=== PATIENT | female | born 1970 | race Caucasian/White ===

== ENCOUNTER 2023-08-28 13:53 | Outpatient (AMB) | payer BC, SELFPAY ==
--- NOTE | 2023-08-28 13:49 | MHC.PC.OV ---
Vital Signs 08/28/23 14:05 Height 5 ft 4.65 in Weight 125 lb 8 oz BMI 21.1 BP 128/76 Blood Pressure Location Lt brachial Position Sitting Respiration 14 Pulse 81 Pulse Source Pulse Oximeter Temp 98 F Temp Source Oral Pulse Oximetry (%) 98 Oxygen Delivery Method Room Air Intake Visit Reasons: EST CARE Intake Note: New patient visit Radio Sportscaster Required: No Allergies trazodone Allergy (Unknown, Verified 08/28/23 13:54) Headache Medication List - Last Reconciled 08/28/23 by Sandra Joyce PA-C lorazepam 1 mg PO DAILY PRN naratriptan take 1 tab at onset of headache; if no relief may repeat 1 tab after at least 4 hrs; max = 2 tabs/24 hrs PO Dental Screening Dental Screen Date: 08/28/23 Did you have a dental visit in the last 12 months?: Yes Did you have a dental problem in the last 6 months where you did not have access to dental care?: No Was dental information given to patient?: Patient has dentist HPI EST CARE HPI Details Patient is a 52-year-old female who presents today for a follow up/to establish care here. She has a significant past medical history of anxiety, hypertension, insomnia, migraines and tachycardia. CV: Blood pressure today in the office is 128/76. At our last visit I had referred her to Cardiology. She did have a negative stress test, echo and a Holter which showed tachycardia. When she stopped the flexeril her palpitations resolved. She is tapering off of propranolol. Neuro: Uses lorazepam as needed for her headaches along with naratriptan as needed. Psych: On lorazepam as needed. 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 1. Little interest or pleasure in doing things: not at all 2. Feeling down, depressed, or hopeless: not at all 3. Trouble falling or staying asleep, or sleeping too much: not at all 4. Feeling tired or having little energy: not at all 5. Poor appetite or overeating: not at all 6. Feeling bad about yourself - or that you are a failure or have let yourself or your family down: not at all 7. Trouble concentrating on things, such as reading the newspaper or watching television: not at all 8. Moving or speaking so slowly that other people could have noticed. Or the opposite - being so fidgety or restless that you have been moving around a lot more than usual: not at all 9. Thoughts that you would be better off or of hurting yourself in some way: not at all Total score: 0 Depression Screening Interpretation: Negative Depression Screening Done: Yes 34814 - PHQ-9 Billing: Yes Source: Developed by Drs. Anthony Chamberlain, Grazyna Miller, Isidro Lane and colleagues, with an educational kimberlyn from [employer]. Thrive Questionnaire I am a: Patient What is your living situation today?: I have a steady place to live Within the past 12 months, did the food you bought not last and you didn't have the money to get more?: Never true Within the past 12 months, did you worry whether your food would run out before you got money to buy more?: Never true Do you have trouble paying for medicines?: No Do you have trouble getting transportation to medical appointments?: No Do you have trouble paying your heating and electricity bill?: No Do you have trouble taking care of your child, family member or friend?: No Do you have trouble with day-to-day activities such as bathing, preparing meals, shopping, managing finances, etc.?: No Are you currently unemployed and looking for a job?: No Are you interested in more education?: No Please select the resources that you would like help with: None Currently or been in a relationship where the following occur: no concerns reported THRIVE Score: 0 AUDIT C Alcohol Use Questionnaire (AUDIT-C) 1. How often do you have a drink containing alcohol?: 2-3 times a week 2. How many drinks containing alcohol do you have on a typical day when you are drinking?: 1 or 2 3. How often do you have six or more drinks on one occasion?: Never Total Score: 3 LAWANDA-7 AMB Questionnaire LAWANDA-7 Feeling nervous, anxious, or on edge: 1 = Several days Not being able to stop or control worryin = Several days Worrying too much about different things: 1 = Several days Trouble relaxin = Several days Being so restless that it is hard to sit still: 0 = Not at all Becoming easily annoyed or irritable: 0 = Not at all Feeling afraid as if something awful might happen: 0 = Not at all Total LAWANDA-7 score (0-4 normal; 5-9 mild; 10-14 moderate; 15-21 severe): 4 Source: Developed by Drs. Anthony Chamberlain, Grazyna Miller, Isidro Lane and colleagues, with an educational kimberlyn from [employer]. LAWANDA-7 Assessment Billing LAWANDA-7 Assessment Tool: LAWANDA-7 Assessment 68054 Physical exam (Primary Care) Vital Signs: Last Vital Signs Temp 98 F 08/28/23 14:05 Pulse 81 08/28/23 14:05 Resp 14 08/28/23 14:05 BP 128/76 08/28/23 14:05 Pulse Ox 98 08/28/23 14:05 Oxygen Delivery Method Room Air 08/28/23 14:05 BMI result Body Mass Index 21.1 Depression Screening Interpretation: Negative Currently or been in a relationship where the following occur: no concerns reported Const Orientation/consciousness: patient oriented x3 HENMT Ears: hearing grossly normal bilaterally Neck Thyroid: Thyroid normal Lymphatic: no lymphadenopathy noted Resp Auscultation: clear to auscultation bilaterally Cardio Rate: regular rate Rhythm: regular rhythm Heart sounds: S1 normal heart sound present and S2 normal heart sound present GI Inspection: Yes normal to inspection Palpation (GI): Soft to palpation and Other GI palpation findings present (nontender, no cva tenderness) Auscultation: normoactive bowel sounds Rectal Exam - Female: deferred Skin General skin exam: no rashes or lesions noted Neuro General: patient oriented x3, gait normal and no focal motor deficits Assessment and Plan Assessment & Plan (1) Migraine headache: Code(s): G43.909 - Migraine, unspecified, not intractable, without status migrainosus Qualifiers: Migraine type: unspecified Status migrainosus presence: without status migrainosus Intractability: not intractable Qualified Code(s): G43.909 - Migraine, unspecified, not intractable, without status migrainosus Plan: will refill naratriptan (2) Panic attacks: Code(s): F41.0 - Panic disorder [episodic paroxysmal anxiety] Plan: refilled lorazepam (3) Vegan diet: Code(s): Z78.9 - Other specified health status Plan: will check labs (including b12). advised supplement (4) Insomnia: Code(s): G47.00 - Insomnia, unspecified Qualifiers: Insomnia type: psychophysiologic Qualified Code(s): F51.04 - Psychophysiologic insomnia Plan: will try acupuncture and melatonin. Orders: Orders Comprehensive Commerce. Panel Fast Today F41.0 - Panic disorder [episodic paroxysmal anxiety], G43.909 - Migraine, unspecified, not intractable, without status migrainosus, G47.00 - Insomnia, unspecified, Z78.9 - Other specified health status TSH reflex Free T4 Today F41.0 - Panic disorder [episodic paroxysmal anxiety], G43.909 - Migraine, unspecified, not intractable, without status migrainosus, G47.00 - Insomnia, unspecified, Z78.9 - Other specified health status Complete Blood Count Auto Diff Today F41.0 - Panic disorder [episodic paroxysmal anxiety], G43.909 - Migraine, unspecified, not intractable, without status migrainosus, G47.00 - Insomnia, unspecified, Z78.9 - Other specified health status Lipid Panel Today F41.0 - Panic disorder [episodic paroxysmal anxiety], G43.909 - Migraine, unspecified, not intractable, without status migrainosus, G47.00 - Insomnia, unspecified, Z78.9 - Other specified health status Vitamin B12 and Folate Today F41.0 - Panic disorder [episodic paroxysmal anxiety], G43.909 - Migraine, unspecified, not intractable, without status migrainosus, G47.00 - Insomnia, unspecified, Z78.9 - Other specified health status Medications: New lorazepam 1 mg PO DAILY 30 days PRN 30 tabs 0RF anxiety naratriptan take 1 tab at onset of headache; if no relief may repeat 1 tab after at least 4 hrs; max = 2 tabs/24 hrs PO 10 tabs 0RF Coding Level of Care Code Est Pt Level 4 (66542) Complex EM visit Add On G2211 Diagnoses Migraine without status migrainosus, not intractable, unspecified migraine type G43.909 Migraine type: unspecified Status migrainosus presence: without status migrainosus Intractability: not intractable Panic attacks F41.0 Vegan diet Z78.9 Psychophysiological insomnia F51.04 Insomnia type: psychophysiologic Additional Codes LAWANDA-7 Assessment Billing - LAWANDA-7 Assessment Tool: LAWANDA-7 Assessment 35160 ([id number])
[2023-08-28 14:05] VITALS: BP 128/76; PULSE 81; RESP 14; TEMP 36.6; O2SAT 98; BMI 21.1
== END 2023-08-28 14:44 | disposition home or self-care (01) ==
PROVIDERS: PCP Physician Assistant; Visit Provider Physician Assistant
DX: G43.909 Migraine, unspecified, not intractable, without status migrainosus (principal); F41.0 Panic disorder [episodic paroxysmal anxiety]; Z78.9 Other specified health status; F51.04 Psychophysiologic insomnia
CPT/HCPCS: 99214

== ENCOUNTER 2024-02-04 07:48 | Outpatient (REF) | payer BC, SELFPAY ==
[2024-02-04 11:09] LABS: MANUAL DIFF FLAG NO
[2024-02-04 11:25] LABS: Basophils Percent Auto 0.2 % (0-2); Eosinophils Absolute Auto 0.1 X10*3/uL (0.0-0.4); Eosinophils Percent Auto 2.3 % (0-4); Hematocrit 38.5 % (37.0-47.0); Hemoglobin 12.7 g/dl (12.0-16.0); Imm Gran Abs Auto 0.02 X10*3/uL (0.00-0.03); Imm Gran Pct Auto 0.4 % (0.0-0.4); Lymphocytes Absolute Auto 0.9 X10*3/uL (1.2-4.9); Lymphocytes Percent Auto 18.9 % (20-40); Mean Corpuscular Hemoglobin 29.7 pg (27.0-33.0); Mean Corpuscular Volume 90.2 fL (80.0-98.0); Mean Platelet Volume 9.7 fL (9.4-12.3); Monocytes Absolute Auto 0.4 X10*3/uL (0.1-1.2); Monocytes Percent Auto 8.1 % (2-11); Neutrophils Absolute Auto 3.4 x10*3/uL (2.0-8.3); Neutrophils Percent Auto 70.1 % (45-73); Platelet Count 263 X10*3/uL (160-400); Red Blood Count 4.27 X10*6/uL (4.20-5.50); Red Cell Distribution Width 13.2 % (11.0-16.0); White Blood Count 4.8 X10*3/uL (4.8-10.8)
[2024-02-04 12:05] LABS: Alanine Aminotransferase 27 U/L (0-31); Albumin Level 4.2 g/dL (3.5-5.0); Alkaline Phosphatase 82 U/L (39-117); Anion Gap 9 (12-20); Aspartate Amino Transferase 28 U/L (5-31); Bilirubin Total 0.6 mg/dL (0.0-1.0); Blood Urea Nitrogen 9 mg/dL (9-16); Calcium 9.6 mg/dL (8.4-10.2); Carbon Dioxide 31 mmol/L (22-29); Chloride 105 mmol/L (96-108); Cholesterol 205 mg/dL (<200); Estimated Glomerular Filt Rate > 60; Folate 15.4 ng/mL (> or = 4.0); Glucose Fasting 88 mg/dL (60-99); HDL Cholesterol 64 mg/dL (>40); Iron 157 mcg/dL (30-160); LDL Cholesterol Calculated 123 mg/dL (<100); Magnesium 2.2 mg/dL (1.6-2.6); Percent Iron Saturation 54 % (15-50); Potassium 4.1 mmol/L (3.3-5.1); Sodium 141 mmol/L (135-145); Total Iron Binding Capacity 290 mcg/dL (228-428); Total Protein 7.4 g/dL (6.5-8.0); Triglycerides 94 mg/dL (<150); Unsaturated Iron Binding 133 ug/dL; Vitamin B12 374 pg/mL (200-900)
[2024-02-04 12:06] LABS: TSH reflex Free T4 3.14 uIU/mL (0.32-4.0)
[2024-02-08 16:08] LABS: VITAMIN D (1,25 OH) D3 43 pg/mL; Vit D (1,25-Dihydroxy) Total 43 pg/mL (18-72); Vitamin D (1,25 OH) D2 <8 pg/mL
[2024-02-10 15:59] LABS: Testosterone, Free 1.5 pg/mL (0.1-6.4); Testosterone, Total 17 ng/dL (2-45)
[2024-02-14 06:23] LABS: Estradiol Ultra Sensitive <2 pg/mL
[2024-02-15 15:19] LABS: Cortisol, Free 0.38 mcg/dL
[2024-02-17 02:03] LABS: Progesterone <0.1 ng/mL
== END 2024-02-04 07:49 | disposition home or self-care (01) ==
LOC: HO.WFDLDS 07:48
PROVIDERS: Visit Provider Physician Assistant
DX: Z78.9 Other specified health status (principal); F41.0 Panic disorder [episodic paroxysmal anxiety]; G47.00 Insomnia, unspecified; G43.909 Migraine, unspecified, not intractable, without status migrainosus; F51.04 Psychophysiologic insomnia; R53.83 Other fatigue
CPT/HCPCS: 36415; 80053; 80061; 82530; 82607; 82652; 82670; 82746; 83540; 83735; 84144; 84402; 84403; 84443; 85025

== ENCOUNTER 2024-02-19 08:46 | Outpatient (AMB) | payer BC, SELFPAY ==
--- NOTE | 2024-02-19 09:00 | A.OFFPC_ITS ---
Vital Signs 02/19/24 09:01 02/19/24 09:15 Height 5 ft 4.65 in Weight 123 lb 4 oz BMI 20.7 BP 142/86 H 110/72 Blood Pressure Location Rt brachial Rt brachial Position Sitting Sitting Pulse 90 Pulse Source Pulse Oximeter Pulse Oximetry (%) 97 Oxygen Delivery Method Room Air Intake Visit Reasons: annual Intake Note: Physical Corporate Responsibility Officer Required: No Allergies trazodone Allergy (Unknown, Verified 02/19/24 09:01) Headache Medication List - Last Reconciled 02/19/24 by Sandra Joyce PA-C lorazepam 1 mg PO DAILY PRN 30 days naratriptan take 1 tab at onset of headache; if no relief may repeat 1 tab after at least 4 hrs; max = 2 tabs/24 hrs orally; Tobacco use date assessed: 02/19/24 Dental Screening Dental Screen Date: 08/28/23 HPI annual HPI Details The patient is a 53-year-old female presenting for a comprehensive physical examination. She has a history of anxiety, managed with lorazepam prn (1-2 x a month). Anxiety has likely been exacerbated by recent life events, including the loss of a pet and stresses at work. She reports intermittent lower back pain that was initially aggravated by physical activity during Labor Day when lifting a heavy object, causing a prolonged period of discomfort. The pain does not radiate to the legs, nor is there bowel or bladder dysfunction. She reports a history of elevated bps, which appears well-managed currently with normal readings. She mentions a previous reading that was slightly high but not concerning to her. She also has a history of dyslipidemia, with favorable levels of HDL and triglycerides reported, though she expressed concerns regarding cholesterol levels, which appear normal based on test results. There is a noted sleep disturbance, characterized by difficulty maintaining sleep, and the patient has tried various interventions , amitriptyline, trazodone without long-term success. Benadryl does seem to help temporarily. Concerns about hydration are also present, with her feeling bloated from water intake and attempting to address hydration more effectively. She is aware of having dense breasts and the implications for mammogram screenings, with recent imaging being within the last couple of months. The presence of breast implants, placed behind the muscle, was also discussed, which allows for adequate tissue visualization during mammography. Colonoscopy: 2022- will get records Mammogram: utd 12/2023, [facility] Pap: reports as utd, follows with Dr. Joyner Bone density: done by Dr. 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 1. Little interest or pleasure in doing things: not at all 2. Feeling down, depressed, or hopeless: not at all 3. Trouble falling or staying asleep, or sleeping too much: several days 4. Feeling tired or having little energy: several days 5. Poor appetite or overeating: not at all 6. Feeling bad about yourself - or that you are a failure or have let yourself or your family down: not at all 7. Trouble concentrating on things, such as reading the newspaper or watching television: not at all 8. Moving or speaking so slowly that other people could have noticed. Or the opposite - being so fidgety or restless that you have been moving around a lot more than usual: not at all 9. Thoughts that you would be better off or of hurting yourself in some way: not at all Total score: 2 Depression Screening Interpretation: Negative Depression Screening Done: Yes 14893 - PHQ-9 Billing: Yes Source: Developed by Drs. Anthony Chamberlain, Grazyna Miller, Isidro Lane and colleagues, with an educational kimberlyn from [employer]. Thrive Questionnaire Date Thrive assessed: 02/12/24 I am a: Patient What is your living situation today?: I have a steady place to live Within the past 12 months, did the food you bought not last and you didn't have the money to get more?: Never true Within the past 12 months, did you worry whether your food would run out before you got money to buy more?: Never true Do you have trouble paying for medicines?: No Do you have trouble getting transportation to medical appointments?: No Do you have trouble paying your heating and electricity bill?: No Do you have trouble taking care of your child, family member or friend?: No Do you have trouble with day-to-day activities such as bathing, preparing meals, shopping, managing finances, etc.?: No Are you currently unemployed and looking for a job?: No Are you interested in more education?: No Please select the resources that you would like help with: None Currently or been in a relationship where the following occur: I choose not to answer THRIVE Score: 0 AUDIT C Alcohol Use Questionnaire (AUDIT-C) 1. How often do you have a drink containing alcohol?: 2-3 times a week 2. How many drinks containing alcohol do you have on a typical day when you are drinking?: 1 or 2 3. How often do you have six or more drinks on one occasion?: Never Total Score: 3 LAWANDA-7 AMB Questionnaire LAWANDA-7 Date LAWANDA - 7 assessed: 02/19/24 Feeling nervous, anxious, or on edge: 0 = Not at all Not being able to stop or control worryin = Several days Worrying too much about different things: 1 = Several days Trouble relaxin = More than half the days Being so restless that it is hard to sit still: 0 = Not at all Becoming easily annoyed or irritable: 0 = Not at all Feeling afraid as if something awful might happen: 0 = Not at all Total LAWANDA-7 score (0-4 normal; 5-9 mild; 10-14 moderate; 15-21 severe): 4 Source: Developed by Drs. Anthony Chamberlain, Grazyna Miller, Isidro Lane and colleagues, with an educational kimberlyn from [employer]. LAWANDA-7 Assessment Billing LAWANDA-7 Assessment Tool: LAWANDA-7 Assessment 42574 Physical exam (Primary Care) Vital Signs: Last Vital Signs Pulse 90 02/19/24 09:01 BP 110/72 02/19/24 09:15 Pulse Ox 97 02/19/24 09:01 Oxygen Delivery Method Room Air 02/19/24 09:01 BMI result Body Mass Index 20.7 Tobacco/Smoking Status: Tobacco use Status Tobacco use date assessed 02/19/24 02/19/24 09:04 Patient Tobacco Use Status Never used Tobacco 02/19/24 09:16 e-Cigarette/Vaping Use Never Used 02/19/24 09:16 PHQ-9: PHQ-9 Score PHQ-9: Total score 2 02/19/24 09:23 Depression Screening Interpretation: Negative Thrive Assessment: Date of Thrive Assessment Date Thrive assessed 02/12/24 02/19/24 09:04 Currently or been in a relationship where the following occur: I choose not to answer Const Orientation/consciousness: patient oriented x3 HENMT Ears: hearing grossly normal bilaterally and TM's normal bilaterally General nose exam: No nasal polyps present Face and sinus: Yes sinuses nontender Mouth: Normal oral and palatal mucosa present Eyes Pupils: Equal, round and reactive pupils present EOM: EOMs intact bilaterally Neck Neck: Yes full ROM and Yes no lymphadenopathy Thyroid: Thyroid normal Chest Chest palpation & inspection: normal inspection of the chest Breast/axilla inspection: normal inspection of the breasts and normal inspection of the axillae Breast/axilla palpation: normal palpation of the breasts and normal palpation of the axillae Resp Auscultation: clear to auscultation bilaterally Cardio Rate: regular rate Rhythm: regular rhythm Heart sounds: S1 normal heart sound present and S2 normal heart sound present Peripheral pulses: Peripheral pulses 2+ throughout GI Other: Soft, nontender Auscultation: normal bowel sounds Rectal Exam - Female: deferred General: Yes no CVA tenderness Back/Spine/Pelvis Other: Nontender Back: no CVA tenderness Skin General skin exam: no rashes or lesions noted Neuro General: patient oriented x3, gait normal, CN's II-XI intact bilaterally and deep tendon reflexes 2+ bilaterally Cranial nerves: Yes Equal, round and reactive pupils present Motor exam (neuro): 5/5 motor strength present throughout Sensory Exam: double simultaneous stimulation for sensation normal Coordination: [id number] test normal and Romberg test negative Extrem General: Yes normal to inspection and Yes full ROM Psych Affect: normal affect Attitude: cooperative Thought process: Normal thought process present Thought content: Normal thought content present Insight: Good insight present (Psych) Judgement: Good judgement present (Psych) Results Reviewed Results Reviewed: Laboratory Tests 02/04/24 07:50 WBC 4.8 RBC 4.27 Hgb 12.7 Hct 38.5 Estimated GFR > 60 Fasting Glucose 88 AST 28 ALT 27 Triglycerides 94 Cholesterol 205 H LDL Cholesterol, Calc 123 H HDL Cholesterol 64 TSH 3.14 Coding Level of Care Code Est Pt Prev Care 40-64y(26770) Diagnoses Encounter for routine history and physical examination Z00.00 Psychophysiological insomnia F51.04 Insomnia type: psychophysiologic Panic attacks F41.0 Additional Codes LAWANDA-7 Assessment Billing - LAWANDA-7 Assessment Tool: LAWANDA-7 Assessment 48165 ([id number]) PHQ-9 - 49620 - PHQ-9 Billing: Yes ([id number]) Assessment & Plan Assessment & Plan (1) Encounter for routine history and physical examination: Code(s): Z00.00 - Encounter for general adult medical examination without abnormal findings Plan: Health maintenance reviewed. Labs reviewed (2) Insomnia: Code(s): G47.00 - Insomnia, unspecified Category: Medical Qualifiers: Insomnia type: psychophysiologic Qualified Code(s): F51.04 - Psychophysiologic insomnia Plan: Trial hydroxyzine (3) Panic attacks: Code(s): F41.0 - Panic disorder [episodic paroxysmal anxiety] Category: Medical Plan: Refilled lorazepam Plan - Continue lorazepam for anxiety management as needed. - Take Flexeril for lower back pain relief. - Consider hydroxyzine for sleep; monitor response over the next month. - Increase hydration, emphasizing the use of coconut water. - Schedule a follow-up with Dr. Joyner to discuss breast imaging results and dense breast considerations. - Maintain regular physical activity within comfort limits. - Re-evaluate labs in early 2023 after incorporating suggestions, including alcohol reduction. Orders: Orders Basic Metabolic Panel Today F51.04 - Psychophysiologic insomnia, G43.909 - Migraine, unspecified, not intractable, without status migrainosus, R79.89 - Other specified abnormal findings of blood chemistry, Z00.00 - Encounter for general adult medical examination without abnormal findings, Z78.9 - Other specified health status Complete Blood Count Auto Diff Today F51.04 - Psychophysiologic insomnia, G43.909 - Migraine, unspecified, not intractable, without status migrainosus, R79.89 - Other specified abnormal findings of blood chemistry, Z00.00 - Encounter for general adult medical examination without abnormal findings, Z78.9 - Other specified health status Medications: New hydroxyzine HCl 25 mg PO BEDTIME 30 tabs 3RF cyclobenzaprine 10 mg PO TID PRN 30 tabs 0RF muscle spasm Refilled lorazepam 1 mg PO DAILY 30 days PRN 30 tabs 0RF anxiety
[2024-02-19 09:01] VITALS: BP 142/86; PULSE 90; O2SAT 97; BMI 20.7
[2024-02-19 09:15] VITALS: BP 110/72
--- OUTSIDE RECORDS SUMMARY | 2024-02-25 16:33 | XMS_ITS | Continuity of Care Document ---
Author Organization [facility] Address [address] [place] [address] Phone [phone] Social History Type Date Description Comments Sex Unknown Medical Devices Description No Information Available Encounters Description No Information Available Assessments Description No Information Available Plan of Treatment No Information Available Functional Status Description No Information Available Mental Status Description No Information Available Referrals Description No Information Available
== END 2024-02-19 10:07 | disposition home or self-care (01) ==
PROVIDERS: PCP Physician Assistant; Visit Provider Physician Assistant
DX: Z00.00 Encounter for general adult medical examination without abnormal findings (principal); F51.04 Psychophysiologic insomnia; F41.0 Panic disorder [episodic paroxysmal anxiety]

== ENCOUNTER → 2024-02-19 08:46 | Outpatient (BNVA) | payer BC, SELFPAY | PROVIDERS: PCP Physician Assistant; Visit Provider Physician Assistant | DX: Z00.00 Encounter for general adult medical examination without abnormal findings (principal); F51.04 Psychophysiologic insomnia; F41.0 Panic disorder [episodic paroxysmal anxiety]; Z79.899 Other long term (current) drug therapy | CPT/HCPCS: 96127 ==

== ENCOUNTER 2024-04-15 12:53 | Outpatient (REF) | payer BC, SELFPAY ==
[2024-04-15 14:37] LABS: MANUAL DIFF FLAG NO
[2024-04-15 14:44] LABS: Basophils Percent Auto 0.2 % (0-2); Eosinophils Absolute Auto 0.1 X10*3/uL (0.0-0.4); Eosinophils Percent Auto 1.3 % (0-4); Hematocrit 37.8 % (37.0-47.0); Hemoglobin 12.5 g/dl (12.0-16.0); Imm Gran Abs Auto 0.03 X10*3/uL (0.00-0.03); Imm Gran Pct Auto 0.5 % (0.0-0.4); Lymphocytes Absolute Auto 1.4 X10*3/uL (1.2-4.9); Lymphocytes Percent Auto 21.9 % (20-40); Mean Corpuscular HGB Conc 33.1 g/dl (31.0-35.0); Mean Corpuscular Hemoglobin 28.9 pg (27.0-33.0); Mean Corpuscular Volume 87.5 fL (80.0-98.0); Mean Platelet Volume 9.4 fL (9.4-12.3); Monocytes Absolute Auto 0.5 X10*3/uL (0.1-1.2); Monocytes Percent Auto 7.7 % (2-11); Neutrophils Absolute Auto 4.2 x10*3/uL (2.0-8.3); Neutrophils Percent Auto 68.4 % (45-73); Platelet Count 291 X10*3/uL (160-400); Red Blood Count 4.32 X10*6/uL (4.20-5.50); Red Cell Distribution Width 12.5 % (11.0-16.0); White Blood Count 6.2 X10*3/uL (4.8-10.8)
[2024-04-15 15:20] LABS: Anion Gap 11 (12-20); Blood Urea Nitrogen 13 mg/dL (9-16); Calcium 9.5 mg/dL (8.4-10.2); Carbon Dioxide 28 mmol/L (22-29); Chloride 104 mmol/L (96-108); Estimated Glomerular Filt Rate > 60; Glucose Random 83 mg/dL (60-115); Potassium 4.1 mmol/L (3.3-5.1); Sodium 139 mmol/L (135-145)
== END 2024-04-15 12:54 | disposition home or self-care (01) ==
LOC: HO.WFDLDS 12:53
PROVIDERS: Visit Provider Physician Assistant
DX: F51.04 Psychophysiologic insomnia (principal); G43.909 Migraine, unspecified, not intractable, without status migrainosus; Z78.9 Other specified health status; Z00.00 Encounter for general adult medical examination without abnormal findings; R79.89 Other specified abnormal findings of blood chemistry
CPT/HCPCS: 36415; 80048; 85025

== ENCOUNTER 2024-05-28 14:56 | Outpatient (AMB) | payer BC, SELFPAY ==
--- NOTE | 2024-05-28 15:01 | A.OFFPC_ITS ---
Vital Signs 05/28/24 15:07 Height 5 ft 4.65 in Weight 125 lb BMI 21.0 BP 133/84 Blood Pressure Location Rt brachial Position Sitting Respiration 12 Pulse 88 Pulse Source Pulse Oximeter Pulse Oximetry (%) 96 Oxygen Delivery Method Room Air Intake Visit Reasons: F/u check-up medication Intake Note: Follow up medication. Interested in urbrevly for increased headache. 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 Psych: She has a history of anxiety, managed with lorazepam prn (1-2 x a month). Anxiety has likely been exacerbated by recent life events, including the loss of a Close friend and cousin about a month ago. She has a good support system and does not feel like she needs to see a therapist but has noticed that she does need to use the lorazepam a bit more. There is a noted sleep disturbance, characterized by difficulty maintaining sleep, and the patient has tried various interventions , amitriptyline, trazodone without long-term success. Hydroxyzine 25 mg is intermittently helpful. She thinks that she would benefit from an increased dose. Neuro: The naratriptan does not seem to be as effective. She is wondering if she can try ubrelvy. Colonoscopy: 2022- will get records Mammogram: utd 12/2023, [facility] Pap: reports as utd, follows with Dr. Joyner Bone density: done by Dr. 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 1. Little interest or pleasure in doing things: not at all 2. Feeling down, depressed, or hopeless: not at all 3. Trouble falling or staying asleep, or sleeping too much: nearly every day 4. Feeling tired or having little energy: not at all 5. Poor appetite or overeating: not at all 6. Feeling bad about yourself - or that you are a failure or have let yourself or your family down: not at all 7. Trouble concentrating on things, such as reading the newspaper or watching television: not at all 8. Moving or speaking so slowly that other people could have noticed. Or the opposite - being so fidgety or restless that you have been moving around a lot more than usual: not at all 9. Thoughts that you would be better off or of hurting yourself in some way: not at all Total score: 3 Depression Screening Interpretation: Positive Depression Screening Done: Yes 31535 - PHQ-9 Billing: Yes Source: Developed by Drs. Anthony Chamberlain, Grazyna Miller, Isidro Lane and colleagues, with an educational kimberlyn from [employer]. Thrive Questionnaire Date Thrive assessed: 05/21/24 I am a: Patient What is your living situation today?: I have a steady place to live Within the past 12 months, did the food you bought not last and you didn't have the money to get more?: I choose not to answer this question Within the past 12 months, did you worry whether your food would run out before you got money to buy more?: I choose not to answer this question Do you have trouble paying for medicines?: I choose not to answer this question Do you have trouble getting transportation to medical appointments?: I choose not to answer this question Do you have trouble paying your heating and electricity bill?: I choose not to answer this question Do you have trouble taking care of your child, family member or friend?: I choose not to answer this question Do you have trouble with day-to-day activities such as bathing, preparing meals, shopping, managing finances, etc.?: I choose not to answer this question Are you currently unemployed and looking for a job?: I choose not to answer this question Are you interested in more education?: I choose not to answer this question Please select the resources that you would like help with: None Currently or been in a relationship where the following occur: I choose not to answer THRIVE Score: 0 AUDIT C Alcohol Use Questionnaire (AUDIT-C) 1. How often do you have a drink containing alcohol?: 2-4 times a month 2. How many drinks containing alcohol do you have on a typical day when you are drinking?: 1 or 2 3. How often do you have six or more drinks on one occasion?: Never Total Score: 2 LAWANDA-7 AMB Questionnaire LAWANDA-7 Date LAWANDA - 7 assessed: 05/28/24 Feeling nervous, anxious, or on edge: 3 = Nearly every day Not being able to stop or control worryin = Nearly every day Worrying too much about different things: 3 = Nearly every day Trouble relaxin = Nearly every day Being so restless that it is hard to sit still: 0 = Not at all Becoming easily annoyed or irritable: 0 = Not at all Feeling afraid as if something awful might happen: 0 = Not at all Total LAWANDA-7 score (0-4 normal; 5-9 mild; 10-14 moderate; 15-21 severe): 12 Source: Developed by Drs. Anthony Chamberlain, Grazyna Miller, Isidro Lane and colleagues, with an educational kimberlyn from [employer]. LAWANDA-7 Assessment Billing LAWANDA-7 Assessment Tool: LAWANDA-7 Assessment 13031 Physical exam (Primary Care) Vital Signs: Last Vital Signs Pulse 88 05/28/24 15:07 Resp 12 05/28/24 15:07 BP 133/84 05/28/24 15:07 Pulse Ox 96 05/28/24 15:07 Oxygen Delivery Method Room Air 05/28/24 15:07 BMI result Body Mass Index 21.0 Tobacco/Smoking Status: Tobacco use Status Tobacco use date assessed 02/19/24 05/28/24 15:02 Patient Tobacco Use Status Never used Tobacco 05/28/24 15:02 e-Cigarette/Vaping Use Never Used 05/28/24 15:02 PHQ-9: PHQ-9 Score PHQ-9: Total score 3 05/28/24 15:05 Depression Screening Interpretation: Positive Thrive Assessment: Date of Thrive Assessment Date Thrive assessed 05/21/24 05/28/24 15:02 Currently or been in a relationship where the following occur: I choose not to answer Const Orientation/consciousness: patient oriented x3 HENMT Ears: hearing grossly normal bilaterally Neck Thyroid: Thyroid normal Lymphatic: no lymphadenopathy noted Resp Auscultation: clear to auscultation bilaterally Cardio Rate: regular rate Rhythm: regular rhythm Heart sounds: S1 normal heart sound present and S2 normal heart sound present GI Inspection: Yes normal to inspection Palpation (GI): Soft to palpation and Other GI palpation findings present (nontender, no cva tenderness) Auscultation: normoactive bowel sounds Rectal Exam - Female: deferred Skin General skin exam: no rashes or lesions noted Neuro General: patient oriented x3, gait normal and no focal motor deficits Results Reviewed Results Reviewed: Laboratory Tests 04/15/24 12:55 WBC 6.2 RBC 4.32 Hgb 12.5 Hct 37.8 Plt Count 291 Sodium 139 Potassium 4.1 Chloride 104 Carbon Dioxide 28 Anion Gap 11 L BUN 13 Creatinine 0.67 Estimated GFR > 60 Random Glucose 83 Calcium 9.5 Coding Level of Care Code Est Pt Level 4 (30684) Complex EM visit Add On G2211 Diagnoses Psychophysiological insomnia F51.04 Insomnia type: psychophysiologic Migraine without status migrainosus, not intractable, unspecified migraine type G43.909 Migraine type: unspecified Status migrainosus presence: without status migrainosus Intractability: not intractable Panic attacks F41.0 Additional Codes LAWANDA-7 Assessment Billing - LAWANDA-7 Assessment Tool: LAWANDA-7 Assessment 88603 ([id number]) PHQ-9 - 13184 - PHQ-9 Billing: Yes ([id number]) Assessment & Plan Assessment & Plan (1) Insomnia: Code(s): G47.00 - Insomnia, unspecified Category: Medical Qualifiers: Insomnia type: psychophysiologic Qualified Code(s): F51.04 - Psychophysiologic insomnia Plan: increase hydroxyzine to 50 mg (2) Migraine headache: Code(s): G43.909 - Migraine, unspecified, not intractable, without status migrainosus Category: Medical Qualifiers: Migraine type: unspecified Status migrainosus presence: without status migrainosus Intractability: not intractable Qualified Code(s): G43.909 - Migraine, unspecified, not intractable, without status migrainosus Plan: will try ubrelvy (3) Panic attacks: Code(s): F41.0 - Panic disorder [episodic paroxysmal anxiety] Category: Medical Plan: will refill lorazepam discussed bereavement and offered referral to . feels ok right now with support system. Medications: New hydroxyzine HCl 50 mg PO BEDTIME 90 tabs 3RF ubrogepant (Ubrelvy) If needed, a second dose may be taken at least 2 hours after the initial dose. The maximum dose in a 24-hour period is 200 mg. 50 mg PO ONCE PRN 30 tabs 1RF migraine Refilled lorazepam 1 mg PO DAILY 30 days PRN 30 tabs 0RF anxiety Discontinued hydroxyzine HCl Discontinued Reason: Doctor's Order 25 mg PO BEDTIME 30 tabs 3RF naratriptan Discontinued Reason: Doctor's Order take 1 tab at onset of headache; if no relief may repeat 1 tab after at least 4 hrs; max = 2 tabs/24 hrs orally; 10 tabs 3RF
[2024-05-28 15:07] VITALS: BP 133/84; PULSE 88; RESP 12; O2SAT 96; BMI 21.0
--- OUTSIDE RECORDS SUMMARY | 2024-05-28 18:40 | XMS_ITS | Continuity of Care Document ---
Author Organization [facility] [place] Address [address] [place] [address] Phone [phone] Social History Type Date Description Comments Sex Unknown Medical Devices Description No Information Available Encounters Description No Information Available Assessments Description No Information Available Plan of Treatment No Information Available Functional Status Description No Information Available Mental Status Description No Information Available Referrals Description No Information Available
== END 2024-05-28 16:49 | disposition home or self-care (01) ==
LOC: HO.HMCFM 14:57
PROVIDERS: PCP Physician Assistant; Visit Provider Physician Assistant
DX: F51.04 Psychophysiologic insomnia (principal); G43.909 Migraine, unspecified, not intractable, without status migrainosus; F41.0 Panic disorder [episodic paroxysmal anxiety]

== ENCOUNTER → 2024-05-28 14:56 | Outpatient (BNVA) | payer BC, SELFPAY | PROVIDERS: PCP Physician Assistant; Visit Provider Physician Assistant | DX: F51.04 Psychophysiologic insomnia (principal); G43.909 Migraine, unspecified, not intractable, without status migrainosus; F41.0 Panic disorder [episodic paroxysmal anxiety]; Z79.899 Other long term (current) drug therapy | CPT/HCPCS: 96127 ==

== ENCOUNTER 2025-02-23 08:07 | Outpatient (REF) | payer BC, SELFPAY ==
[2025-02-23 10:58] LABS: MANUAL DIFF FLAG NO
[2025-02-23 11:02] LABS: Hematocrit 37.5 % (37.0-47.0); Hemoglobin 12.3 g/dl (12.0-16.0); Imm Gran Abs Auto 0.04 X10*3/uL (0.00-0.03); Imm Gran Pct Auto 0.6 % (0.0-0.4); Lymphocytes Absolute Auto 0.9 X10*3/uL (1.2-4.9); Mean Corpuscular HGB Conc 32.8 g/dl (31.0-35.0); Mean Corpuscular Hemoglobin 28.9 pg (27.0-33.0); Mean Corpuscular Volume 88.0 fL (80.0-98.0); NRBC Abs Auto 0.000 X10*3/uL (0.0-0.012); NRBC Pct Auto 0.0 /100WBC (0.0-0.2); Platelet Count 262 X10*3/uL (160-400); Red Blood Count 4.26 X10*6/uL (4.20-5.50); White Blood Count 6.6 X10*3/uL (4.8-10.8)
[2025-02-23 11:26] LABS: Appearance Urine Clear; Glucose Urine UA Negative (Negative); PH 6.5 (5.0-9.0); Specific Gravity - Urine 1.020 (1.005-1.025)
[2025-02-23 11:36] LABS: Alanine Aminotransferase 49 U/L (0-31); Albumin Level 4.3 g/dL (3.5-5.0); Alkaline Phosphatase 70 U/L (39-117); Anion Gap 9 (12-20); Aspartate Amino Transferase 43 U/L (5-31); Blood Urea Nitrogen 17 mg/dL (9-16); Calcium 9.3 mg/dL (8.4-10.2); Carbon Dioxide 30 mmol/L (22-29); Chloride 108 mmol/L (96-108); Cholesterol 216 mg/dL (<200); Estimated Glomerular Filt Rate > 60; HDL Cholesterol 66 mg/dL (>40); Magnesium 2.2 mg/dL (1.6-2.6); Potassium 4.6 mmol/L (3.3-5.1); Sodium 142 mmol/L (135-145); Total Protein 7.0 g/dL (6.5-8.0); Triglycerides 84 mg/dL (<150)
[2025-02-23 11:55] LABS: Folate 9.6 ng/mL (> or = 4.0); Vitamin B12 325 pg/mL (200-900)
== END 2025-02-23 08:08 | disposition home or self-care (01) ==
LOC: HO.WFDLDS 08:07
PROVIDERS: Visit Provider Physician Assistant
DX: F41.0 Panic disorder [episodic paroxysmal anxiety] (principal); G43.909 Migraine, unspecified, not intractable, without status migrainosus; F51.04 Psychophysiologic insomnia; R30.0 Dysuria; Z01.89 Encounter for other specified special examinations; Z78.9 Other specified health status; Z13.6 Encounter for screening for cardiovascular disorders
CPT/HCPCS: 36415; 80053; 80061; 81003; 82043; 82570; 82607; 82746; 83735; 84443; 85025

== ENCOUNTER 2025-02-24 15:24 | Outpatient (AMB) | payer BC, SELFPAY ==
--- NOTE | 2025-02-24 15:32 | MHC.PC.OV ---
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 Psych: She has a history of anxiety, managed with lorazepam prn (1-2 x a month). There is a noted sleep disturbance, characterized by difficulty maintaining sleep, and the patient has tried various interventions , amitriptyline, trazodone without long-term success. Hydroxyzine 50 mg is intermittently helpful. Neuro: The naratriptan does not seem to be as effective. She is wondering if she can try ubrelvy. 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 Joyner Bone density: 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 occupational exposures/hazards: No Cognitive needs: No Hearing needs: No Vision needs: No Questionnaire Thrive Questionnaire Date Thrive assessed: 05/21/24 I am a: Patient What is your living situation today?: I have a steady place to live Within the past 12 months, did the food you bought not last and you didn't have the money to get more?: I choose not to answer this question Within the past 12 months, did you worry whether your food would run out before you got money to buy more?: I choose not to answer this question Do you have trouble paying for medicines?: I choose not to answer this question Do you have trouble getting transportation to medical appointments?: I choose not to answer this question Do you have trouble paying your heating and electricity bill?: I choose not to answer this question Do you have trouble taking care of your child, family member or friend?: I choose not to answer this question Do you have trouble with day-to-day activities such as bathing, preparing meals, shopping, managing finances, etc.?: I choose not to answer this question Are you currently unemployed and looking for a job?: I choose not to answer this question Are you interested in more education?: I choose not to answer this question Please select the resources that you would like help with: None Currently or been in a relationship where the following occur: I choose not to answer THRIVE Score: 0 LAWANDA-7 AMB Questionnaire LAWANDA-7 Date LAWANDA - 7 assessed: 05/28/24 Source: Developed by Drs. Anthony Chamberlain, Grazyna Miller, Isidro Lane and colleagues, with an educational kimberlyn from [employer]. Physical exam (Primary Care) Vital Signs: Last Vital Signs Temp 98 F 02/24/25 15:33 Pulse 96 02/24/25 15:33 Resp 12 02/24/25 15:33 BP 126/84 02/24/25 15:33 Pulse Ox 95 02/24/25 15:33 Oxygen Delivery Method Room Air 02/24/25 15:33 BMI result Body Mass Index 20.8 Tobacco/Smoking Status: Tobacco use Status Tobacco use date assessed 02/19/24 02/24/25 15:36 Patient Tobacco Use Status Never used Tobacco 02/24/25 15:36 e-Cigarette/Vaping Use Never Used 02/24/25 15:36 Thrive Assessment: Date of Thrive Assessment Date Thrive assessed 05/21/24 02/24/25 15:36 Currently or been in a relationship where the following occur: I choose not to answer Const Orientation/consciousness: patient oriented x3 HENMT Ears: hearing grossly normal bilaterally and TM's normal bilaterally General nose exam: No nasal polyps present Face and sinus: Yes sinuses nontender Mouth: Normal oral and palatal mucosa present Eyes Pupils: Equal, round and reactive pupils present EOM: EOMs intact bilaterally Neck Neck: Yes full ROM and Yes no lymphadenopathy Thyroid: Thyroid normal Chest Chest palpation & inspection: normal inspection of the chest Resp Auscultation: clear to auscultation bilaterally Cardio Rate: regular rate Rhythm: regular rhythm Heart sounds: S1 normal heart sound present and S2 normal heart sound present Peripheral pulses: Peripheral pulses 2+ throughout GI Other: Soft, nontender Auscultation: normal bowel sounds Rectal Exam - Female: deferred General: Yes no CVA tenderness Back/Spine/Pelvis Other: Nontender Back: no CVA tenderness Skin General skin exam: no rashes or lesions noted Neuro General: patient oriented x3, gait normal, CN's II-XI intact bilaterally and deep tendon reflexes 2+ bilaterally Cranial nerves: Yes Equal, round and reactive pupils present Motor exam (neuro): 5/5 motor strength present throughout Sensory Exam: double simultaneous stimulation for sensation normal Coordination: [id number] test normal and Romberg test negative Extrem General: Yes normal to inspection and Yes full ROM Psych Affect: normal affect Attitude: cooperative Thought process: Normal thought process present Thought content: Normal thought content present Insight: Good insight present (Psych) Judgement: Good judgement present (Psych) Coding Level of Care Code Est Pt Prev Care 40-64y(70836) Diagnoses Routine general medical examination at a health care facility Z00.00 Panic attacks F41.0 Psychophysiological insomnia F51.04 Insomnia type: psychophysiologic Elevated LFTs R79.89 Assessment & Plan Assessment & Plan (1) Routine general medical examination at a health care facility: Code(s): Z00.00 - Encounter for general adult medical examination without abnormal findings Plan: Health maintenance reviewed Labs ordered We will follow up pending test results. (2) Panic attacks: Code(s): F41.0 - Panic disorder [episodic paroxysmal anxiety] Category: Medical Plan: Well-controlled and stable. Continue current regimen (3) Insomnia: Code(s): G47.00 - Insomnia, unspecified Category: Medical Qualifiers: Insomnia type: psychophysiologic Qualified Code(s): F51.04 - Psychophysiologic insomnia Plan: Controlled (4) Elevated LFTs: Code(s): R79.89 - Other specified abnormal findings of blood chemistry Plan: No previous history of this. We will recheck in a few weeks as she did get labs done the day of her traveling home from vacation. Orders: Orders Complete Blood Count Auto Diff 02/24/25 R79.89 - Other specified abnormal findings of blood chemistry Basic Metabolic Panel 02/24/25 R79.89 - Other specified abnormal findings of blood chemistry Liver Panel 02/24/25 R79.89 - Other specified abnormal findings of blood chemistry Medications: New valacyclovir (Valtrex) 2,000 mg (2 x 1 gram) PO Q12H PRN 20 tabs 1RF outbreak 1 day
[2025-02-24 15:33] VITALS: BP 126/84; PULSE 96; RESP 12; TEMP 36.6; O2SAT 95; BMI 20.8
--- OUTSIDE RECORDS SUMMARY | 2025-02-24 23:59 | XMS_ITS | Continuity of Care Document ---
Author Organization [facility] Address [address] [place] [address] Phone [phone] Social History Type Date Description Comments Sex Female Sex Unknown Medical Devices Description No Information Available Encounters Description No Information Available Assessments Description No Information Available Plan of Treatment No Information Available Functional Status Description No Information Available Mental Status Description No Information Available Referrals Description No Information Available
== END 2025-02-24 16:00 | disposition home or self-care (01) ==
LOC: HO.HMCFM 15:26
PROVIDERS: PCP Physician Assistant; Visit Provider Physician Assistant
DX: Z00.00 Encounter for general adult medical examination without abnormal findings (principal); F41.0 Panic disorder [episodic paroxysmal anxiety]; F51.04 Psychophysiologic insomnia; R79.89 Other specified abnormal findings of blood chemistry